=== PATIENT | female | born 1960 ===

== ENCOUNTER 2022-09-12 10:27 | Emergency (ER) | payer OTHER ==
[~2022-09-12] VITALS: Ht 170.2 cm; Wt 81.6 kg
[2022-09-12] MEDS ORDERED: MORPHINE 4 MG SYG IM PRN (11:30)
[2022-09-12 12:23] VITALS: BP 165/84
[2022-09-12] MEDS ORDERED: ACET-2079 PO (13:06)
== END 2022-09-12 13:16 | disposition home or self-care (01) ==
LOC: EDH 10:27
DX: S82.831A Other fracture of upper and lower end of right fibula, initial encounter for closed fracture (principal); E11.9 Type 2 diabetes mellitus without complications; I10 Essential (primary) hypertension; Z90.49 Acquired absence of other specified parts of digestive tract; Z90.710 Acquired absence of both cervix and uterus; Z88.8 Allergy status to other drugs, medicaments and biological substances; X58.XXXA Exposure to other specified factors, initial encounter; Y93.41 Activity, dancing; Y92.89 Other specified places as the place of occurrence of the external cause; Y99.8 Other external cause status
CPT/HCPCS: 99283; 73600; 96372; J2270